=== PATIENT | female | born 1975 | race Caucasian/White ===

== ENCOUNTER 2017-05-03 08:40 | Day surgery (SDC) | payer OTHER ==
[~2017-05-03 08:40] MED LIST: Lactated Ringers 1,000 ML IV SCH; Sodium Chloride 0.9% 10 ML Syringe FLUSH PRN
[2017-05-03] MEDS ORDERED: Midazolam 1 MG/ML 2 ML SDV ONE ×3 (08:43→09:49)
[2017-05-03] MEDS ORDERED: fentaNYL 100 MCG/2 ML SDV ONE ×2 (08:43→09:49)
[2017-05-03] MEDS ORDERED: Propofol 200 MG/20 ML SDV ONE ×2 (08:44→09:49)
--- NOTE | 2017-05-03 09:47 | PCM.HPR ---
H & P Addendum review - H & P Addendum Review Date of Original H & P: 04/06/17 Date Reviewed: 05/03/17 Time Reviewed: 09:47 Patient was Examined: No Changes
[2017-05-03] MEDS ORDERED: Lidocaine 2% 5 ML SDV ONE (09:49)
[2017-05-03] MEDS ORDERED: Ondansetron 4 MG/2 ML SDV ONE (09:49)
--- NOTE | 2017-05-03 10:04 | PCM.OPNOTE ---
- General Post-Op/Procedure Note Date of Surgery/Procedure: 05/03/17 Operative Procedure(s): EGD with Bx Findings: No stricture Pre Op Diagnosis: Dysphasia Post-Op Diagnosis: Same Anesthesia Technique: MAC Primary Surgeon: Franko Frausto Anesthesia Provider: Enid Virgen Complications: None Condition: Good
--- NOTE | 2017-05-03 15:02 | OR ---
Date of Procedure: 05/03/2017 PREOPERATIVE DIAGNOSIS: Dysphagia. POSTOPERATIVE DIAGNOSIS: Dysphagia. PROCEDURE: EGD with biopsies. ANESTHESIA: IV sedation. DESCRIPTION OF PROCEDURE: The patient was brought to the procedure room, where she was placed on her left side and IV sedation administered. Oral bite block was placed and upper endoscope advanced into the esophagus under direct vision without difficulty. The scope was then advanced easily through the EG junction and advanced to the 3rd portion of the duodenum. The duodenum and pylorus appear normal. Antrum and body of the stomach were normal. Retroflexion was normal. There was no stricture present. There was no hiatal hernia present. There may be some mild distal esophagitis. I did take 2 biopsies just above the squamocolumnar junction. Air was removed from the stomach and the scope withdrawn through the remaining esophagus, which appears normal. The patient tolerated the procedure well and returned to recovery in stable condition. I will have the patient follow up with Idalia Noble PA-C, for review of biopsies. I will have her start omeprazole 20 mg daily as I suspect her dysphagia is due to swelling from acid reflux. ERIC PORRAS MD /[id number]
== END 2017-05-03 11:00 | disposition home or self-care (01) ==
LOC: LL.SDS 08:40
PROVIDERS: ATTEND Surgery
DX: K20.9 Esophagitis, unspecified (principal)
CPT/HCPCS: 43239; J2250; J2405; J2704; J3010; J7120; 00731

== ENCOUNTER 2020-02-20 13:18 | Emergency (ER) | payer BC ==
[2020-02-20] MEDS ORDERED: Sodium Chloride 0.9% 10 ML Syringe FLUSH PRN (13:40)
[2020-02-20] MEDS ORDERED: Famotidine 20 MG/2 ML SDV IVPUSH ONE (13:40)
[2020-02-20] MEDS ORDERED: Lactated Ringers 1,000 ML IV ONE (13:40)
[2020-02-20] MEDS ORDERED: Ondansetron 4 MG/2 ML SDV IVPUSH ONE (13:40)
--- NOTE | 2020-02-20 13:40 | EDM.PDOC ---
ED HPI GENERAL MEDICAL PROBLEM - General Chief Complaint: General Stated Complaint: ABD PAIN Time Seen by Provider: 02/20/20 13:30 Source of Information: Reports: Patient, Old Records ([facility] chart/EMR) History Limitations: Reports: No Limitations - History of Present Illness INITIAL COMMENTS - FREE TEXT/NARRATIVE: Patient was brought to the emergency room via private automobile for a 5-day history of intermittent epigastric 8/10 abdominal pain with radiation to the retrosternal and interscapular region. Patient did take her omeprazole this morning with known history of peptic ulcer disease with mild gastritis. No recent history of other abdominal pain, nausea, emesis diarrhea, melena, gross hematochezia, or any food intolerance, including fatty foods, etc.. She denies any gross hematuria, colic, or other UTI symptoms. The patient denies any chest pain/pressure, heart flutter, dizziness, orthostasis, orthopnea, diaphoresis, paresthesias, recent decreased exercise tolerance, or any other anginal-type symptoms. The patient also denies any recent fever, cough, wheezing, dyspnea, etc.. She denies any known exposure to infection. Onset: Gradual Onset Date: 02/16/20 Onset Time: 11:00 Duration: Getting Worse, Intermittent Location: Reports: Chest, Abdomen, Back, Radiates to (As above). Denies: Head, Face, Neck, Upper Extremity, Left, Upper Extremity, Right Quality: Reports: Ache, Same as Previous Episode Severity: Moderate Improves with: Reports: None Worsens with: Reports: None Context: Reports: Other (As above). Denies: Sick Contact, Trauma Associated Symptoms: Reports: Chest Pain. 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 Denies: Cataract, Glaucoma, Hard of Hearing, Macular Degeneration, Retinal Detachment Other HEENT History: Patient wears glasses. Sseasonal allergies. Cardiovascular History: Reports: None. Denies: Arrhythmia, Heart Murmur, Hypertension Respiratory History: Reports: None Gastrointestinal History: Reports: Cholelithiasis, GERD, Hemorrhoids, Other (See Below). Denies: GI Bleed, PUD Other Gastrointestinal History: GERD and mild esophagitis by EGD in April 2017. Dysphagia. Genitourinary History: Reports: None WEB FEEDER History: Reports: . Denies: Dysfunctional Uterine Bleeding, Endometriosis, Spontaneous : 2 Para: 2 LMP (Approximate): Other (See Below) Other WEB FEEDER History: LMP on 02/16/2020 was normal and about and at this time. Full term without complications during pregnancies or deliveries. Musculoskeletal History: Reports: Arthritis, Fracture, Osteoarthritis, Other (See Below) Other Musculoskeletal History: Shoulder fracture as a childside unknown. Neurological History: Reports: None Psychiatric History: Reports: None Endocrine/Metabolic History: Reports: Obesity/BMI 30+. Denies: Diabetes, Gestational, Diabetes, Type I, Diabetes, Type II, Diabetes Mellitus, Type 3c, Hypothyroidism, IDDM Hematologic History: Reports: None Immunologic History: Reports: None Oncologic (Cancer) History: Reports: None Dermatologic History: Reports: None - Past Surgical History HEENT Surgical History: Reports: Myringotomy w Tube(s), Oral Surgery, Other (See Below). Denies: Adenoidectomy, Tonsillectomy Other HEENT Surgeries/Procedures: Bilateral PE tubes as a child. [place] teeth extraction x2. GI Surgical History: Reports: Cholecystectomy, EGD, Hernia, Inguinal, Other (See Below). Denies: Appendectomy, Polypectomy Other GI Surgeries/Procedures: Hemorrhoidectomy in 2019. Laparoscopic cholecystectomy on 04/27/2003. EGD with biopsies on 05/03/2017. Bilateral inguinal hernia repairs initially at age 2 side at age 3 and the other side at age 17. Female Surgical History: Reports: None. Denies: Section, D&C, Hysterectomy, Tubal Ligation - Past Imaging History Past Imaging History: Reports: Ultrasound (OB ultrasounds. 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 ED EXAM, GENERAL - Physical Exam Exam: See Below Exam Limited By: No Limitations General Appearance: Alert, WD/WN, No Apparent Distress Eye Exam: Bilateral Eye: EOMI, Normal Inspection (No nystagmus), PERRL Ears: Normal External Exam, Normal Canal, Hearing Grossly Normal, Normal TMs Nose: Normal Inspection, Normal Mucosa, No Blood Throat/Mouth: Normal Inspection, Normal Lips, Normal Teeth, Normal Gums, Normal Oropharynx, Normal Voice, No Airway Compromise. No: Dysphagia, Inflammation, Perioral Cyanosis Head: Atraumatic, Normocephalic. No: Facial Swelling, Facial Tenderness, Sinus Tenderness Neck: Normal Inspection, Supple, Non-Tender, Full Range of Motion. No: Lymphadenopathy (L), Lymphadenopathy (R), Thyromegaly Respiratory/Chest: No Respiratory Distress, Lungs Clear, Normal Breath Sounds, No Accessory Muscle Use, Chest Non-Tender. No: Pleural Rub, Retractions Cardiovascular: Normal Peripheral Pulses, Regular Rate, Rhythm, No Edema, No Gallop, No JVD, No Murmur, No Rub. No: Gallop/S3, Gallop/S4, Friction Rub Peripheral Pulses: 2+: Radial (L), Radial (R) GI/Abdominal: Normal Bowel Sounds, Soft, Non-Tender, No Organomegaly, No Distention, No Abnormal Bruit, No Mass, Other (Obese). No: Guarding (Female) Exam: Deferred Rectal (Female) Exam: Deferred Back Exam: Normal Inspection, Full Range of Motion. No: CVA Tenderness (L), CVA Tenderness (R) Extremities: Normal Inspection, Normal Range of Motion, Non-Tender, No Pedal Edema, Normal Capillary Refill. No: Yfn's Sign Neurological: Alert, Oriented, CN II-XII Intact, Normal Cognition, Normal Gait, No Motor/Sensory Deficits Psychiatric: Normal Affect, Normal Mood Skin Exam: Warm, Dry, Intact, Normal Color, No Rash. No: Diaphoretic, Ecchymosis, Wound/Incision Lymphatic: No Adenopathy #1 Interpretation EKG Date: 02/20/20 Time: 15:26 Rhythm: NSR Rate (Beats/Min): 75 [place]: Normal (Neutral) P-Wave: Present QRS: Normal (0.08 seconds with T wave inversion in lead V1) ST-T: Normal QT: Normal CO/PQ Interval: 0.14 seconds with no delta waves noted Comparison: NA - No Prior EKG EKG Interpretation Comments: 1. No acute ischemic changes 2. Borderline short CO interval Course - Vital Signs Last Recorded V/S: Last Vital Signs Temp 36.2 C 02/20/20 13:19 Pulse 86 02/20/20 13:19 Resp 16 02/20/20 13:19 BP 149/88 H 02/20/20 13:19 Pulse Ox 100 02/20/20 13:19 Vital Signs - 24 hr 02/20/20 13:19 Temperature [ 36.2 C Temporal] Pulse, 86 Peripheral [ Pulse Oximetry] Respiratory 16 Rate Blood Pressure 149/88 H [Left Upper Arm ] O2 Sat by Pulse 100 Oximetry - Orders/Labs/Meds Orders: Active Orders 24 hr Category Date Time Status EKG Documentation Completion [RC] ASDIRECTED Care 02/20/20 14:15 Active Peripheral IV Care [RC] . DIRECTED Care 02/20/20 13:41 Active Nothing Per Oral Diet [DIET] Diet 02/20/20 Breakfast Active Abdomen Series w Chest 1V [CR] Stat Exams 02/20/20 13:40 Taken CULTURE URINE [RM] Stat Lab 02/20/20 14:25 Received Sodium Chloride 0.9% [Saline Flush] Med 02/20/20 13:40 Active 10 ml FLUSH ASDIRECTED PRN Isolation [COMM] Routine Oth 02/20/20 13:42 Active Obtain Past Medical Record [OM.PC] Urgent Oth 02/20/20 13:40 Active Peripheral IV Insertion Adult [OM.PC] Stat Oth 02/20/20 13:40 Ordered Resuscitation Status Stat Resus Stat 02/20/20 13:40 Ordered Medication Orders Sodium Chloride (Saline Flush) 10 ml FLUSH ASDIRECTED PRN PRN Reason: Keep Vein Open Labs: Laboratory Tests 02/20/20 02/20/20 02/20/20 Range/Units 13:42 13:58 13:58 WBC 8.6 (4.0-10.2) K/uL RBC 4.07 (3.77-5.09) M/uL Hgb 12.1 (11.7-15.5) g/dL Hct 38.5 (34.0-46.0) % MCV 94.6 (84.0-98.0) fL MCH 29.7 (28.2-33.3) pg MCHC 31.4 L (31.7-36.0) g/dL RDW 12.8 (11.2-14.1) % Plt Count 288 (150-350) K/uL Neut % (Auto) 59.4 (45.0-80.0) % Lymph % (Auto) 23.1 (10.0-50.0) % [place] % (Auto) 4.2 (2.0-14.0) % Eos % (Auto) 12.8 H (0.0-5.0) % Baso % (Auto) 0.5 (0.0-2.0) % Neut # (Auto) 5.11 (1.40-7.00) K/uL Lymph # (Auto) 1.99 (0.50-3.50) K/uL [place] # (Auto) 0.36 (0.00-1.00) K/uL Eos # (Auto) 1.10 H (0.00-0.50) K/uL Baso # (Auto) 0.04 (0.00-0.20) K/uL PT 10.2 (9.5-12.0) SEC INR 1.0 APTT 22.7 L (24.5-32.8) SEC D-Dimer, Quantitative (0-400) ng/mL Sodium (136-145) mmol/L Potassium (3.5-5.1) mmol/L Chloride (98-107) mmol/L Carbon Dioxide (21.0-32.0) mmol/L BUN (7-18) mg/dL Creatinine (0.51-1.17) mg/dL Est Cr Clr Drug Dosing mL/min Estimated GFR (MDRD) mL/min Glucose (74-106) mg/dL Lactic Acid (0.4-2.0) mmol/L Uric Acid (2.6-7.2) mg/dL Calcium (8.5-10.1) mg/dL Magnesium (1.8-2.4) mg/dL Total Bilirubin (0.2-1.0) mg/dL AST (15-37) U/L ALT (12-78) U/L Alkaline Phosphatase (46-116) IU/L Creatine Kinase (26-308) U/L Creatine Kinase Index (0.0-2.5) % CK-MB (CK-2) (0.00-3.60) ng/mL Troponin I (0.000-0.056) ng/mL NT-Pro-B Natriuret Pep (0-125) pg/mL Total Protein (6.4-8.2) g/dL Albumin (3.4-5.0) g/dL Amylase (25-115) U/L Lipase (73-393) U/L HCG, Qual (NEGATIVE) Specimen Type Urine Color Urine Appearance Urine pH (5.0-9.0) Ur Specific [place] (1.005-1.030) Urine Protein (NEGATIVE) mg/dL Urine Glucose (UA) (NEGATIVE) mg/dL Urine Ketones (NEGATIVE) mg/dL Urine Occult Blood (NEGATIVE) Urine Nitrite (NEGATIVE) Urine Bilirubin (NEGATIVE) Urine Urobilinogen (0.2-1.0) E.U./dL Ur Leukocyte Esterase (NEGATIVE) Urine RBC /HPF Urine WBC /HPF Ur Epithelial Cells /LPF Urine Bacteria (NONE TO FEW) /HPF SARS-CoV-2 RNA (SARATH) Negative (NEGATIVE) 02/20/20 02/20/20 02/20/20 Range/Units 13:58 13:58 13:58 WBC (4.0-10.2) K/uL RBC (3.77-5.09) M/uL Hgb (11.7-15.5) g/dL Hct (34.0-46.0) % MCV (84.0-98.0) fL MCH (28.2-33.3) pg MCHC (31.7-36.0) g/dL RDW (11.2-14.1) % Plt Count (150-350) K/uL Neut % (Auto) (45.0-80.0) % Lymph % (Auto) (10.0-50.0) % [place] % (Auto) (2.0-14.0) % Eos % (Auto) (0.0-5.0) % Baso % (Auto) (0.0-2.0) % Neut # (Auto) (1.40-7.00) K/uL Lymph # (Auto) (0.50-3.50) K/uL [place] # (Auto) (0.00-1.00) K/uL Eos # (Auto) (0.00-0.50) K/uL Baso # (Auto) (0.00-0.20) K/uL PT (9.5-12.0) SEC INR APTT (24.5-32.8) SEC D-Dimer, Quantitative (0-400) ng/mL Sodium 138 (136-145) mmol/L Potassium 3.5 (3.5-5.1) mmol/L Chloride 104 (98-107) mmol/L Carbon Dioxide 28.8 (21.0-32.0) mmol/L BUN 19 H (7-18) mg/dL Creatinine 0.66 (0.51-1.17) mg/dL Est Cr Clr Drug Dosing 82.94 mL/min Estimated GFR (MDRD) > 60 mL/min Glucose 97 (74-106) mg/dL Lactic Acid 0.9 (0.4-2.0) mmol/L Uric Acid 4.1 (2.6-7.2) mg/dL Calcium 8.6 (8.5-10.1) mg/dL Magnesium 1.8 (1.8-2.4) mg/dL Total Bilirubin 0.4 (0.2-1.0) mg/dL AST 35 (15-37) U/L ALT 29 (12-78) U/L Alkaline Phosphatase 96 (46-116) IU/L Creatine Kinase 55 (26-308) U/L Creatine Kinase Index 2.0 (0.0-2.5) % CK-MB (CK-2) 1.10 (0.00-3.60) ng/mL Troponin I 0.000 (0.000-0.056) ng/mL NT-Pro-B Natriuret Pep 27 (0-125) pg/mL Total Protein 7.2 (6.4-8.2) g/dL Albumin 3.6 (3.4-5.0) g/dL Amylase 29 (25-115) U/L Lipase 65 L (73-393) U/L HCG, Qual Negative (NEGATIVE) Specimen Type Urine Color Urine Appearance Urine pH (5.0-9.0) Ur Specific [place] (1.005-1.030) Urine Protein (NEGATIVE) mg/dL Urine Glucose (UA) (NEGATIVE) mg/dL Urine Ketones (NEGATIVE) mg/dL Urine Occult Blood (NEGATIVE) Urine Nitrite (NEGATIVE) Urine Bilirubin (NEGATIVE) Urine Urobilinogen (0.2-1.0) E.U./dL Ur Leukocyte Esterase (NEGATIVE) Urine RBC /HPF Urine WBC /HPF Ur Epithelial Cells /LPF Urine Bacteria (NONE TO FEW) /HPF SARS-CoV-2 RNA (SARATH) (NEGATIVE) 02/20/20 02/20/20 Range/Units 13:58 14:25 WBC (4.0-10.2) K/uL RBC (3.77-5.09) M/uL Hgb (11.7-15.5) g/dL Hct (34.0-46.0) % MCV (84.0-98.0) fL MCH (28.2-33.3) pg MCHC (31.7-36.0) g/dL RDW (11.2-14.1) % Plt Count (150-350) K/uL Neut % (Auto) (45.0-80.0) % Lymph % (Auto) (10.0-50.0) % [place] % (Auto) (2.0-14.0) % Eos % (Auto) (0.0-5.0) % Baso % (Auto) (0.0-2.0) % Neut # (Auto) (1.40-7.00) K/uL Lymph # (Auto) (0.50-3.50) K/uL [place] # (Auto) (0.00-1.00) K/uL Eos # (Auto) (0.00-0.50) K/uL Baso # (Auto) (0.00-0.20) K/uL PT (9.5-12.0) SEC INR APTT (24.5-32.8) SEC D-Dimer, Quantitative 130 (0-400) ng/mL Sodium (136-145) mmol/L Potassium (3.5-5.1) mmol/L Chloride (98-107) mmol/L Carbon Dioxide (21.0-32.0) mmol/L BUN (7-18) mg/dL Creatinine (0.51-1.17) mg/dL Est Cr Clr Drug Dosing mL/min Estimated GFR (MDRD) mL/min Glucose (74-106) mg/dL Lactic Acid (0.4-2.0) mmol/L Uric Acid (2.6-7.2) mg/dL Calcium (8.5-10.1) mg/dL Magnesium (1.8-2.4) mg/dL Total Bilirubin (0.2-1.0) mg/dL AST (15-37) U/L ALT (12-78) U/L Alkaline Phosphatase (46-116) IU/L Creatine Kinase (26-308) U/L Creatine Kinase Index (0.0-2.5) % CK-MB (CK-2) (0.00-3.60) ng/mL Troponin I (0.000-0.056) ng/mL NT-Pro-B Natriuret Pep (0-125) pg/mL Total Protein (6.4-8.2) g/dL Albumin (3.4-5.0) g/dL Amylase (25-115) U/L Lipase (73-393) U/L HCG, Qual (NEGATIVE) Specimen Type Urinvoid Urine Color Yellow Urine Appearance Clear Urine pH 6.0 (5.0-9.0) Ur Specific [place] 1.025 (1.005-1.030) Urine Protein Negative (NEGATIVE) mg/dL Urine Glucose (UA) Negative (NEGATIVE) mg/dL Urine Ketones Trace H (NEGATIVE) mg/dL Urine Occult Blood Negative (NEGATIVE) Urine Nitrite Negative (NEGATIVE) Urine Bilirubin Negative (NEGATIVE) Urine Urobilinogen 0.2 (0.2-1.0) E.U./dL Ur Leukocyte Esterase Negative (NEGATIVE) Urine RBC Not seen /HPF Urine WBC 0-5 /HPF Ur Epithelial Cells Moderate H /LPF Urine Bacteria Few (NONE TO FEW) /HPF SARS-CoV-2 RNA (SARATH) (NEGATIVE) Urine specimen set up for culture and sensitivity Meds: Medications Generic Name Dose Route Start Last Admin Trade Name Freq PRN Reason Stop Dose Admin Sodium Chloride 10 ml 02/20/20 13:40 Saline Flush FLUSH ASDIRECTED PRN Keep Vein Open Discontinued Medications Generic Name Dose Route Start Last Admin Trade Name Freq PRN Reason Stop Dose Admin Famotidine 40 mg 02/20/20 13:40 02/20/20 14:39 Pepcid IVPUSH 02/20/20 13:41 40 mg ONETIME ONE Administration Lactated Ringer's 1,000 mls @ 999 mls/hr 02/20/20 13:40 02/20/20 14:40 Ringers, Lactated IV 02/20/20 14:40 999 mls/hr .BOLUS ONE Administration Ondansetron HCl 4 mg 02/20/20 13:40 02/20/20 14:39 Zofran IVPUSH 02/20/20 13:41 4 mg ONETIME ONE Administration - Radiology Interpretation Free Text/Narrative:: 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 Surgical clips noted in right upper quadrant consistent with previous laparoscopic cholecystectomy. Departure - Departure Time of Disposition: 16:10 Disposition: Home, Self-Care 01 Clinical Impression: Peptic reflux disease, Tobacco abuse counseling, Osteoarthritis, Atypical chest pain, Elevated blood pressure reading, Obesity (BMI 30-39.9) - Discharge Information *PRESCRIPTION DRUG MONITORING PROGRAM REVIEWED*: Not Applicable *COPY OF PRESCRIPTION DRUG MONITORING REPORT IN PATIENT GEMMA: Not Applicable Prescriptions: Omeprazole 20 mg PO BIDAC #1 cap.sr Instructions: Steps to Quit Smoking, [id number], Health Risks of Smoking, Heartburn, [id number] Referrals: Dominique Romero NP [Primary Care Provider] - Forms: ED Department Discharge Additional Instructions: 1. Followup with your regular provider in 10-14 days as directed. Consider collecting stool specimens for H. pylori antigen versus surgical consultation for repeat EGD depending on your symptoms at follow-up. Bring these discharge instructions with you to that visit. 2. [place] diet including encouragement of oral fluids such as sports drinks, etc. for 24-48 hours as directed. Advance to regular diet as tolerated thereafter. 3. Stop all tobacco exposure TEO as directed with counselling, information, etc. given at discharge. 4. Immediately after this visit verify that your cellular telephone's voicemail has been activated and is empty. Also verify that your home telephone's answering machine is operating properly and has space to receive messages. Note that it is sometimes necessary for us to be able to contact you at a later date to discuss your medical care. 5. Please remember that we are ALWAYS here for you and want to answer any questions you may have. Feel free to call the hospital any time and we call you back TEO. 6. Obtain your influenza booster TEO as discussed. Following instructions were given verbally and did not appear on her initial discharge instructions: 7. [place] diet including encouragement of oral fluids such as sports drinks, etc. for 24-48 hours as directed. Advance to heart healthy diet as tolerated thereafter. 8. Continue to observe your blood pressures closely by your regular provider 9. Change of Prilosec dose to twice daily regimen as above. Sepsis Event Note (ED) - Evaluation Sepsis Screening Result: No Definite Risk - Focused Exam Vital Signs: Vital Signs Temp Pulse Resp BP Pulse Ox 02/20/20 13:19 36.2 C 86 16 149/88 H 100 - Problem List & Annotations (1) Atypical chest pain SNOMED Code(s): 166365953 Code(s): R07.89 - OTHER CHEST PAIN Status: Acute Priority: High Onset Date: 02/16/20 Annotation/Comment:: Atypical chest pain likely secondary to her GERD. Note negative EKG and cardiac enzymes with symptoms ongoing since 02/15 and no reason for admission for rule out OK. Continue to observe closely by her regular provider with cardiac work-up depending on her clinical course. (2) Elevated blood pressure reading SNOMED Code(s): 27116768 Code(s): R03.0 - ELEVATED BLOOD-PRESSURE READING, W/O DIAGNOSIS OF HTN Status: Acute Priority: Medium Onset Date: 02/20/20 Annotation/Comment:: No previous history of hypertension. Observe for now. Weight loss in moderation advisable. (3) Obesity (BMI 30-39.9) SNOMED Code(s): 498238600, 454629088 Code(s): E66.9 - OBESITY, UNSPECIFIED Status: Chronic Priority: Medium Annotation/Comment:: Weight loss in moderation advisable as above. Consider fasting lipid panel by regular provider, if this has not been updated recently. (4) Osteoarthritis SNOMED Code(s): 343894421 Code(s): M19.90 - UNSPECIFIED OSTEOARTHRITIS, UNSPECIFIED SITE Status: Chronic Priority: Medium Annotation/Comment:: Stable by history. Qualifiers: Osteoarthritis location: multiple joints Osteoarthritis type: primary Qualified Code(s): M89.49 - Other hypertrophic osteoarthropathy, multiple sites (5) Peptic reflux disease SNOMED Code(s): 318806772 Code(s): K21.9 - GASTRO-ESOPHAGEAL REFLUX DISEASE WITHOUT ESOPHAGITIS Status: Acute Priority: High Onset Date: 02/16/20 Annotation/Comment:: Exacerbation of her chronic GERD with improved symptoms prior to discharge as above. Note the patient does not have any nausea or previous history of emesis, although she did have 1 large emesis without hematemesis shortly after arrival to our facility. [place] diet x48 hours with subsequent heart healthy diet thereafter as tolerated, and her Prilosec to be increased to a twice daily basis until otherwise directed by her regular provider, although note that this was discussed verbally with the patient prior to discharge and was not present on her discharge instructions. Consider H. pylori stool antigen evaluation versus repeat EGD depending on her clinical course. The patient does not need a work excuse by her history. (6) Tobacco abuse counseling SNOMED Code(s): 339574043, 629539372, 504606318 Code(s): Z71.6 - TOBACCO ABUSE COUNSELING Status: Chronic Priority: Medium Annotation/Comment:: The patient was provided tobacco cessation information for her . She was also encouraged to have an influenza booster TEO. - Problem List Review Problem List Initiated/Reviewed/Updated: Yes - My Orders Last 24 Hours: My Active Orders 02/20/20 Breakfast Nothing Per Oral Diet [DIET] 02/20/20 13:40 Abdomen Series w Chest 1V [CR] Stat Sodium Chloride 0.9% [Saline Flush] 10 ml FLUSH ASDIRECTED PRN Obtain Past Medical Record [OM.PC] Urgent Peripheral IV Insertion Adult [OM.PC] Stat Resuscitation Status Stat 02/20/20 13:41 Peripheral IV Care [RC] . DIRECTED 02/20/20 13:42 Isolation [COMM] Routine 02/20/20 14:15 EKG Documentation Completion [RC] ASDIRECTED 02/20/20 14:25 CULTURE URINE [RM] Stat - Assessment/Plan Last 24 Hours: My Active Orders 02/20/20 Breakfast Nothing Per Oral Diet [DIET] 02/20/20 13:40 Abdomen Series w Chest 1V [CR] Stat Sodium Chloride 0.9% [Saline Flush] 10 ml FLUSH ASDIRECTED PRN Obtain Past Medical Record [OM.PC] Urgent Peripheral IV Insertion Adult [OM.PC] Stat Resuscitation Status Stat 02/20/20 13:41 Peripheral IV Care [RC] . DIRECTED 02/20/20 13:42 Isolation [COMM] Routine 02/20/20 14:15 EKG Documentation Completion [RC] ASDIRECTED 02/20/20 14:25 CULTURE URINE [RM] Stat Assessment:: As above Plan: As above. Extensive precautions were given to the patient, who is in agreement with the treatment plan. See Patient Instructions for further treatment and plan.
[2020-02-20 14:23] LABS: PTT,PARTIAL THROMBOPLSTIN TIME 22.7 SEC (24.5-32.8)
[2020-02-20 14:40] LABS: CHLORIDE,CL 104 mmol/L (98-107); SODIUM,NA 138 mmol/L (136-145)
== END 2020-02-20 16:10 | disposition home or self-care (01) ==
LOC: LL.ED 13:18
DX: K21.9 Gastro-esophageal reflux disease without esophagitis (principal); Z71.6 Tobacco abuse counseling; M19.90 Unspecified osteoarthritis, unspecified site; R03.0 Elevated blood-pressure reading, without diagnosis of hypertension; E66.9 Obesity, unspecified; Z68.31 Body mass index [BMI] 31.0-31.9, adult; Z79.899 Other long term (current) drug therapy; Z77.22 Contact with and (suspected) exposure to environmental tobacco smoke (acute) (chronic); Z20.828 Contact with and (suspected) exposure to other viral communicable diseases
CPT/HCPCS: 36415; 74022; 80053; 81001; 82150; 82550; 82553; 83605; 83690; 83735; 83880; 84484; 84550; 84703; 85025; 85379; 85610; 85730; 87086; 87804; 93005; 93010; 96361; 96374; 96375; 99284; 99285-25; J2405; J3490; J7120; U0002